=== PATIENT | female | born 1950 | race Asian ===

== ENCOUNTER 2018-07-30 15:52 | Inpatient (IN) | payer OTHER ==
[~2018-07-30] VITALS: Ht 165.1 cm; Wt 59.9 kg
[2018-07-30 16:37] VITALS: Ht 165.1 cm; Wt 59.9 kg
[2018-07-30 17:46] LABS: PLATELET COUNT 126 x10^3mcL (130-400); RED CELL DISTRIBUTION WIDTH 14.4 % (11.5-14.5)
[2018-07-30 17:53] LABS: CALCIUM 7.9 mg/dL (8.5-10.1); CARBON DIOXIDE 25.5 mmol/L (21-32); CHLORIDE SERUM 100 mmol/L (98-107); CREATININE SERUM 0.8 mg/dL (0.6-1.0); GFR1 > 60 mL/min; GLUCOSE SERUM 149 mg/dL (74-106); POTASSIUM SERUM 3.2 mmol/L (3.5-5.1); SODIUM SERUM 137 mmol/L (136-145)
[2018-07-30 18:04] LABS: BAND NEUTROPHIL 9 % (0-10); BASOPHIL 0 % (0-2); MONOCYTE 7 % (0-7); SEGMENTED NEUTROPHILS 77 % (37-75); rbc morphology (normal/abnorm) NORMAL (NORMAL)
[2018-07-30 18:05] LABS: PLATELET MORPHOLOGY PLATELETS NORMAL
[2018-07-30 18:06] LABS: ALKALINE PHOSPHATASE 60 U/L (46-116); ALT/SGPT 23 U/L (14-59); AST/SGOT 29 U/L (15-37); BILIRUBIN TOTAL 1.45 mg/dL (0.20-1.00); FREE T4 1.24 ng/dL (0.76-1.46); LIPASE 78 IU/L (73-393); TOTAL PROTEIN, SERUM 7.1 g/dL (6.4-8.2)
[2018-07-30 22:22] LABS: PHOSPHOROUS 2.4 mg/dL (2.5-4.9)
[2018-07-30 22:37] LABS: CHOLESTEROL/HDL RATIO 2.3
[2018-07-30 23:12] VITALS: BP 99/51
[2018-07-31 00:30] LABS: UA SPECIFIC GRAVITY >=1.030 (1.005-1.035); microscopic required? YES; urine erythrocyte 3+ (NEGATIVE)
[2018-07-31 00:48] LABS: AMPHETAMINE QUAL UR NONE DETECTED (See below)
[2018-07-31 06:16] VITALS: BP 95/54
[2018-07-31 06:19] LABS: BASOPHIL % 0.3 % (0-2)
[2018-07-31 06:20] LABS: PLATELET COUNT 118 x10^3mcL (130-400); RED CELL DISTRIBUTION WIDTH 14.6 % (11.5-14.5)
[2018-07-31 07:20] LABS: CALCIUM 7.8 mg/dL (8.5-10.1); CARBON DIOXIDE 24.6 mmol/L (21-32); MAGNESIUM 2.1 mg/dL (1.8-2.4); POTASSIUM SERUM 3.6 mmol/L (3.5-5.1)
[2018-07-31 09:42] VITALS: BP 108/68
[2018-07-31] MEDS ORDERED: TESSALON PERLE100 MG PO (10:27)
[2018-07-31] MEDS ORDERED: IMITREX50 MG PO (10:30)
[2018-07-31 13:35] VITALS: BP 108/68
== END 2018-07-31 15:50 | disposition home or self-care (01) | DRG 50 ==
LOC: ED 15:52 → MU 21:44 → EDBEDREQ 21:44 → MU 22:58
PROVIDERS: Emergency Medicine; ADMIT Family Medicine
DX: G03.9 Meningitis, unspecified (principal); I63.9 Cerebral infarction, unspecified; N17.0 Acute kidney failure with tubular necrosis; E44.0 Moderate protein-calorie malnutrition; G43.909 Migraine, unspecified, not intractable, without status migrainosus; E05.90 Thyrotoxicosis, unspecified without thyrotoxic crisis or storm; E87.6 Hypokalemia; E83.39 Other disorders of phosphorus metabolism; E83.51 Hypocalcemia; N39.0 Urinary tract infection, site not specified; Z80.0 Family history of malignant neoplasm of digestive organs; R73.03 Prediabetes; J10.1 Influenza due to other identified influenza virus with other respiratory manifestations; Z90.49 Acquired absence of other specified parts of digestive tract; Z68.27 Body mass index [BMI] 27.0-27.9, adult; Z80.8 Family history of malignant neoplasm of other organs or systems
CPT/HCPCS: 83880; 84439; 87804; 90732; J0696; J1885; J2270; J2765; J7030; Q0092